=== PATIENT | male | born 1975 | race Hispanic/Latino ===

== ENCOUNTER → 2017-04-30 | Outpatient (CLI) | payer MEDICARE ==
[~2017-04-30] MED LIST: IOPAMIDOL 370 MG/ML 200 ML INFUS..BTL INJ ONE; SODIUM CHLORIDE 0.9% 50ML 100 ML ONE
[2017-04-30 10:07] LABS: BLOOD UREA NITROGEN 16 mg/dL (7-26); BUN/CREATININE RATIO 17 (6-25); CREATININE, SERUM 0.93 mg/dL (0.72-1.25); EST GLOMERULAR FILTRATION RATE > 60 ML/MIN (60-)
--- NOTE | 2017-04-30 12:32 | Diagnostic Imaging Report ---
EXAM: CTA Chest WITH contrast. DATE: 04/30/2017 9:36 AM INDICATION: COMPARISON: None TECHNIQUE: CT angiogram of the chest was obtained after the administration of IV contrast. Prospective gating was performed. Images reviewed in the axial, coronal, and sagittal planes. 3D reconstructions performed on off-line workstation. Reformatted axial MIP images were obtained and reviewed. IV Contrast: 100 mL Isovue-370. Total DLP: 577 mGy*cm Est. Eff. Dose DLP x 0.015 x size factor mSv (CTDIvol has been reviewed and is below limits set by [facility]). FINDINGS: Lines and Tubes: None. Lower Neck: Hypodensity right thyroid lobe. Heart and Great Vessels: The pulmonary artery measure 32 mm. The cardiothoracic radio measures 17/32. No pericardial effusion. Minimal coronary artery vascular calcifications. Branching pattern of coronary arteries and great vessels routine. Left atrium 64 mm AP diameter. Aortic Annulus: 32 mm. Sinus of Valsalva: 45 mm. Sinotubular junction: Effaced, 44 mm. Ascending Aorta at level of PA: 55 mm. Mid Arch: 29 mm. Proximal Descendin mm. Mid Descendin mm. Distal Descendin mm. Other: No dissection. Lymph Nodes: No suspicious adenopathy. Lungs: No pleural effusion or pneumothorax. Trachea and central bronchi are unremarkable. 3 mm probable granuloma right lower lobe. Upper abdomen: Decreased attenuation of the liver. Bones and Soft Tissues: No acute findings. IMPRESSION: 1. 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 follow-up recommended. 2. Ectasia aortic annulus. 3. Dilated left atrium. 4. Hypodensity right thyroid lobe. Nonemergent thyroid ultrasound recommended. 5. Probable hepatic steatosis. Signed by: Dr. Calderon Ocasio MD on 04/30/2017 12:29 PM
== END ==
LOC: CT 09:22
PROVIDERS: ATTEND Internal Medicine Cardiovascular Disease
DX: I71.2 Thoracic aortic aneurysm, without rupture (principal)
CPT/HCPCS: 36415; 71275; 82565; 84520; Q9967